=== PATIENT | male | born 2000 | race Caucasian/White ===

== ENCOUNTER 2018-10-13 18:32 | Emergency (ER) | payer BC ==
[2018-10-13 19:23] VITALS: BP 146/82
--- NOTE | 2018-10-13 19:46 | UC ---
FLU HPI - HPI Summary HPI Summary: [employer] Student who has not gotten a flu vaccine, 2-3 days of cough fatigue and body aches--no fever that he is aware of sometimes awakes with nasal congestion - History of Current Complaint Chief Complaint: UCRespiratory Stated Complaint: COUGH/BENITEZ Time Seen by Provider: 10/13/18 19:39 Hx Obtained From: Patient Onset/Duration: Sudden Onset, Lasting Days - 2-3, Still Present Pain Intensity: 1 Pain Scale Used: 0-10 Numeric Associated Signs & Symptoms: Positive: Cough, Nasal Congestion - Allergy/Home Medications Allergies/Adverse Reactions: Allergies Allergy/AdvReac Type Severity Reaction Status Date / Time No Known Allergies Allergy Verified 10/13/18 19:23 Home Medications: Home Medications Ibuprofen TAB* [Advil TAB*] 400 mg PO Q6H PRN 10/13/18 [History Confirmed ] Phenylephrine/Dm/Acetaminop/GG [Vicks Dayquil Severe Cold-Flu] 1 each PO Q6H 06/21 [History Confirmed 10/13/18] PMH/Surg Hx/FS Hx/Imm Hx Previously Healthy: Yes - Surgical History Surgical History: None - Social History Occupation: Student Lives: Dormitory/Roommates Alcohol Use: Occasionally Substance Use Type: None Smoking Status (MU): Never Smoked Tobacco Have You Smoked in the Last Year: No Review of Systems All Other Systems Reviewed And Are Negative: Yes Constitutional: Positive: Chills, Fatigue Skin: Positive: Negative Eyes: Positive: Negative ENT: Positive: Negative Respiratory: Positive: Cough Cardiovascular: Positive: Negative Gastrointestinal: Positive: Negative Genitourinary: Positive: Negative Motor: Positive: Negative Neurovascular: Positive: Negative Musculoskeletal: Positive: Negative Neurological: Positive: Negative Psychological: Positive: Negative Is Patient Immunocompromised?: No Physical Exam Triage Information Reviewed: Yes Appearance: Well-Appearing, No Pain Distress, Well-Nourished Vital Signs: Initial Vital Signs Temp 99.8 F 10/13/18 19:18 Pulse 114 10/13/18 19:18 Resp 20 10/13/18 19:18 BP 146/82 10/13/18 19:18 Pulse Ox 98 10/13/18 19:18 Vital Signs Reviewed: Yes Eye Exam: Normal Eyes: Positive: Conjunctiva Clear ENT Exam: Normal ENT: Positive: Normal ENT inspection, Hearing grossly normal, Pharynx normal, TMs normal, Uvula midline. Negative: Nasal congestion, Trismus, Muffled voice, Hoarse voice, Sinus tenderness Dental Exam: Normal Neck exam: Normal Neck: Positive: Supple, Nontender Respiratory Exam: Normal Respiratory: Positive: Chest non-tender, Lungs clear, Normal breath sounds, No respiratory distress, No accessory muscle use Cardiovascular Exam: Normal Cardiovascular: Positive: RRR, No Murmur, Pulses Normal, Brisk Capillary Refill Musculoskeletal Exam: Normal Musculoskeletal: Positive: Strength Intact, ROM Intact, No Edema Neurological Exam: Normal Neurological: Positive: Alert, Muscle Tone Normal Psychological Exam: Normal Skin Exam: Normal Diagnostics - Laboratory Diagnostic Studies Completed/Ordered: influenza A (+) Flu Course/Dx - Course Course Of Treatment: Increase fluids tylenol, ibuprofen OTC medications for symptoms relief follow with [facility] as needed - Differential Dx/Diagnosis Provider Diagnosis: Influenza A Discharge - Sign-Out/Discharge Documenting (check all that apply): Patient Departure All imaging exams completed and their final reports reviewed: No Studies - Discharge Plan Condition: Stable Disposition: HOME Patient Education Materials: Influenza (ED) Forms: *School Release Referrals: [facility] [Outside] - If Needed - Billing Disposition and Condition Condition: STABLE Disposition: Home
[2018-10-13 19:55] LABS: Influenza A Molecular POSITIVE (Negative)
[2018-10-13] MEDS ORDERED: Oseltamivir CAP* 75 MG CAP PO ONE (20:15)
== END 2018-10-13 20:21 | disposition home or self-care (01) ==
LOC: UCCORT 18:32
DX: J10.1 Influenza due to other identified influenza virus with other respiratory manifestations (principal)
CPT/HCPCS: 99202; A9270-GY; G0463

== ENCOUNTER 2019-10-14 16:35 | Emergency (ER) | payer BC ==
[2019-10-14 17:15] VITALS: BP 135/74
--- NOTE | 2019-10-14 17:25 | UC ---
UC General HPI - HPI Summary HPI Summary: 19 yo gentleman c/o fever, bodyache, h/a started yesterday, worse today since waking up no rash no n/v. appetite decreased no cough no ear pain - History of Current Complaint Chief Complaint: UCRespiratory Stated Complaint: FLU SXS Time Seen by Provider: 10/14/19 17:24 Hx Obtained From: Patient Pain Intensity: 6 - Allergy/Home Medications Allergies/Adverse Reactions: Allergies Allergy/AdvReac Type Severity Reaction Status Date / Time No Known Allergies Allergy Verified 10/14/19 17:11 PMH/Surg Hx/FS Hx/Imm Hx Previously Healthy: Yes - Surgical History Surgical History: None - Family History Known Family History: Positive: Non-Contributory - Social History Alcohol Use: Occasionally Substance Use Type: None Smoking Status (MU): Never Smoked Tobacco Have You Smoked in the Last Year: No Review of Systems All Other Systems Reviewed And Are Negative: Yes Constitutional: Positive: Fever, Fatigue Skin: Positive: Negative Eyes: Positive: Negative ENT: Positive: Nasal Discharge, Sinus Congestion Respiratory: Positive: Negative Cardiovascular: Positive: Negative Gastrointestinal: Positive: Negative Genitourinary: Positive: Negative Motor: Positive: Negative Neurovascular: Positive: Negative Musculoskeletal: Positive: Other: - bodyaches Neurological/Mental Status: Positive: Headache - not wol, but had similar sx last year with illness Psychological: Positive: Negative Is Patient Immunocompromised?: No Physical Exam Triage Information Reviewed: Yes Appearance: Well-Nourished - sitting up, conversing easily. looks tired but nad Vital Signs: Initial Vital Signs Temp 100.2 F 10/14/19 17:12 Pulse 89 10/14/19 17:12 Resp 16 10/14/19 17:12 BP 135/74 10/14/19 17:12 Pulse Ox 100 10/14/19 17:12 Eye Exam: Normal ENT: Positive: Pharyngeal erythema - mild post pharynx redness, no sores / exudates, Nasal drainage - clear, TM dull, Uvula midline Neck exam: Normal Neck: Positive: Supple, Nontender, No Lymphadenopathy Respiratory Exam: Normal Respiratory: Positive: Chest non-tender, Lungs clear, Normal breath sounds, No respiratory distress, No accessory muscle use Cardiovascular Exam: Normal Cardiovascular: Positive: RRR, Pulses Normal, Brisk Capillary Refill Abdominal Exam: Normal Abdomen Description: Positive: Nontender Musculoskeletal Exam: Normal - moves well x 4 ext's, subj c/o achy all over Neurological Exam: Normal - nonfocal Psychological Exam: Normal - nad Skin Exam: Normal - no visible or reported rash nondiaphoretic Course/Dx - Course Course Of Treatment: Influenza a/b neg however, Darius reports that he had identical sx last year, tested negative for influenza, but tamiflu helped. would like to start. indeed, sx are c/w with influenza / influenza like illness. however, Darius was admonished to keep a close eye on symptoms and go to the ED if any worse / new symptoms or not better. I offered to call his parents, but he declines. reviewed coa / tx plan with pt questions as posed answered to the best of my ability. - Diagnoses Provider Diagnosis: Viral syndrome, Febrile illness Discharge ED - Sign-Out/Discharge Documenting (check all that apply): Patient Departure All imaging exams completed and their final reports reviewed: No Studies - Discharge Plan Condition: Stable Disposition: HOME Prescriptions: Oseltamivir CAP* [Tamiflu CAP*] 75 mg PO BID #10 cap Patient Education Materials: Ibuprofen (By mouth), Fever in Adults (ED), Viral Syndrome (ED) Forms: *School Release, *Work Release Referrals: No Primary Care Phys,NOPCP [Primary Care Provider] - Additional Instructions: Please go to the Emergency Department for any worse or new problems. Hydrate. - Billing Disposition and Condition Condition: STABLE Disposition: Home
[2019-10-14 17:44] LABS: Influenza A Molecular Negative (Negative); Influenza B Molecular Negative (Negative)
== END 2019-10-14 18:22 | disposition home or self-care (01) ==
LOC: UCCORT 16:35
DX: B34.9 Viral infection, unspecified (principal); R50.9 Fever, unspecified; M79.10 Myalgia, unspecified site; R09.89 Other specified symptoms and signs involving the circulatory and respiratory systems; R53.83 Other fatigue
CPT/HCPCS: 99212; G0463